=== PATIENT | female | born 1995 | race Caucasian/White ===

== ENCOUNTER 2022-12-08 15:26 | Emergency (ER) | payer SELFPAY ==
[~2022-12-08] VITALS: Ht 165.1 cm; Wt 58.0 kg
[2022-12-08 15:57] VITALS: O2SAT 98
[2022-12-08] MEDS ORDERED: KETOROLAC 10MG TABLET PO ONE (18:00)
[2022-12-08] MEDS ORDERED: MECLIZINE 25MG TABLET PO ONE (18:00)
[2022-12-08] MEDS ORDERED: MECLIZINE 12.5MG TABLET PO NR (21:30)
[2022-12-08] MEDS ORDERED: KETOROLAC 10MG TABLET PO NR (21:30)
[2022-12-08 21:42] VITALS: BP 96/52
[2022-12-08] MEDS ORDERED: MECL-299 MT (22:53)
[2022-12-08] MEDS ORDERED: NAPR-1176 MT (22:53)
[2022-12-08 23:20] VITALS: PULSE 70; RESP 16; TEMP 98.6
== END 2022-12-08 23:22 | disposition home or self-care (01) ==
LOC: ER 15:26
DX: R51.9 Headache, unspecified (principal); R42 Dizziness and giddiness
CPT/HCPCS: 99284; 70450; 81025; J8597